=== PATIENT | female | born 1965 | race Caucasian/White ===

== ENCOUNTER → 2020-12-01 | Outpatient (CLI) | payer MEDICARE ==
[~2020-12-01] VITALS: Ht 162.6 cm; Wt 105.7 kg
[~2020-12-01] MED LIST: OMNICEF 300 MG300 MG PO; PYRIDIUM200 MG PO
== END ==
LOC: OPSV 09:51
DX: M06.9 Rheumatoid arthritis, unspecified (principal)
CPT/HCPCS: 96365; 96375; J1602; J2920

== ENCOUNTER → 2021-01-18 | Outpatient (CLI) | payer MEDICARE ==
[~2021-01-18] VITALS: Ht 162.6 cm; Wt 105.7 kg
== END ==
LOC: OPSV 09:00
DX: M06.9 Rheumatoid arthritis, unspecified (principal)
CPT/HCPCS: 96365; 96375; J1602; J2920